=== PATIENT | female | born 1960 | race Two or more races ===

== ENCOUNTER 2023-07-07 11:24 | Outpatient (AMB) | payer OTHER, SELFPAY ==
--- NOTE | 2023-07-07 11:27 | HO.NEPHOV ---
HPI HPI Comments History of Present Illness Details 63-year-old woman with a history of longstanding diabetes mellitus is here for follow-up regarding CKD. Recent serum creatinine has been around 1.4 mg/dL. Overall she is doing well without any new complaints. She has been monitoring of blood pressure at home which has been well controlled with systolic blood pressure less than 120 mm of mercury. She is accompanied by motor vehicle parts interpreter. [facility] Social History Alcohol intake: never Patient Tobacco Use Status: Never used Tobacco Vital Signs 07/07/23 11:31 07/07/23 11:55 Height 5 ft 2 in Weight 142 lb BMI 26.0 BP 160/72 H 140/70 H Blood Pressure Location Lt brachial Lt brachial Position Sitting Sitting Pulse 92 Pulse Source Pulse Oximeter Pulse Oximetry (%) 100 Oxygen Delivery Method Room Air Physical Exam Vital Signs: Last Vital Signs Pulse 92 07/07/23 11:31 BP 140/70 H 07/07/23 11:55 Pulse Ox 100 07/07/23 11:31 Oxygen Delivery Method Room Air 07/07/23 11:31 BMI result Body Mass Index 26.0 Const General: comfortable Nutritional Appearance: well nourished Orientation/consciousness: patient oriented x3 HEENT Head: No normal to inspection Mouth: moist mucous membranes Neck Neck: Yes supple and Yes no JVD Resp Auscultation: clear to auscultation bilaterally, no rales and rub present Cardio Jugular venous distension: no JVD Palpation: no palpable S3 and no palpable S4 Heart sounds: no rubs GI Palpation (GI): Soft to palpation and nontender Percussion: No Fluid wave present General: Yes no CVA tenderness Back/Spine/Pelvis Back: no CVA tenderness Skin General skin exam: no rashes or lesions noted Neuro General: patient oriented x3 Extrem General: Yes no pedal edema and No clubbing Assessment & Plan Assessment & Plan (1) CKD (chronic kidney disease) stage 3, GFR 30-59 ml/min: Code(s): N18.30 - Chronic kidney disease, stage 3 unspecified Plan: . Plan 63-year-old woman with stage IIIA CKD in the setting of longstanding diabetes mellitus. Renal function has been stable at baseline. I will recheck BUN creatinine today. Continue overt nephrotoxic agents. Maintain blood pressure less than 130/80 and A1c less than 7%. Continue with SGLT 2 inhibitors for cardiorenal protection As for the blood pressure her initial reading was elevated at 160/80. 15 minutes later repeat blood pressure 140/70 mmHg and she clearly has white coat effect. Home blood pressure readings are excellent. I have encouraged her to continue monitoring her blood pressure at home. Stay on low-sodium diet. No changes were made to her medications today. Orders: Orders Electrolytes Today N18.30 - Chronic kidney disease, stage 3 unspecified Creatinine Today N18.30 - Chronic kidney disease, stage 3 unspecified Calcium Today N18.30 - Chronic kidney disease, stage 3 unspecified Blood Urea Nitrogen Today N18.30 - Chronic kidney disease, stage 3 unspecified Coding Level of Care Code Est Pt Level 3 (98421) Diagnoses CKD (chronic kidney disease) stage 3, GFR 30-59 ml/min N18.30 Results Reviewed Results Reviewed: Creatinine 1.3 as of November 2022 Nephrology Results: No Data to Display
[2023-07-07 11:31] VITALS: BP 160/72; PULSE 92; O2SAT 100; BMI 26.0
[2023-07-07 11:55] VITALS: BP 140/70
== END 2023-07-07 11:55 | disposition home or self-care (01) ==
LOC: HO.HKAS 11:25
PROVIDERS: PCP Pediatrics; Visit Provider Internal Medicine Hypertension Specialist
DX: N18.30 Chronic kidney disease, stage 3 unspecified (principal)
CPT/HCPCS: 99213

== ENCOUNTER 2023-07-07 11:24 | Outpatient (REF) | payer OTHER, SELFPAY ==
[2023-07-08 09:25] LABS: Anion Gap 11 (12-20); Blood Urea Nitrogen 30 mg/dL (9-16); Calcium 9.6 mg/dL (8.4-10.2); Carbon Dioxide 26 mmol/L (22-29); Chloride 102 mmol/L (96-108); Estimated Glomerular Filt Rate 41; Potassium 4.4 mmol/L (3.3-5.1); Sodium 135 mmol/L (135-145)
== END 2023-07-07 11:25 | disposition home or self-care (01) ==
LOC: HO.HKASLDS 11:24
PROVIDERS: PCP Pediatrics; Visit Provider Internal Medicine Hypertension Specialist
DX: N18.30 Chronic kidney disease, stage 3 unspecified (principal)
CPT/HCPCS: 36415; 80051; 82310; 82565; 84520; 99212

== ENCOUNTER 2024-01-05 10:16 | Outpatient (AMB) | payer OTHER, SELFPAY ==
--- NOTE | 2024-01-05 10:43 | HO.NEPHOV_ITS ---
Vital Signs 01/05/24 10:44 01/05/24 10:56 Height 5 ft 2 in Weight 138 lb BMI 25.2 BP 150/64 H 138/60 Blood Pressure Location Lt brachial Lt brachial Position Sitting Sitting Pulse 88 Pulse Source Pulse Oximeter Pulse Oximetry (%) 100 Oxygen Delivery Method Room Air Intake Visit Reasons: 6 mon follow up/ Conf Facilities Engineer Required: Yes Facilities Engineer Name: Yamilex [id number] Accompanied by: Self / Same As Patient Allergies hydroxyzine [From Vistaril] Allergy (Mild, Verified 01/05/24 10:45) Depression Medication List - Last Reconciled 01/05/24 by Deangelo Nelson MD amlodipine 2.5 mg PO DAILY atorvastatin 40 mg PO BEDTIME empagliflozin (Jardiance) 25 mg PO DAILY glipizide 5 mg PO BID HPI Comments Details: 63-year-old woman with a history of longstanding diabetes mellitus is here for follow-up regarding CKD. Recent serum creatinine has been around 1.4 mg/dL. Overall she is doing well without any new complaints. She has been monitoring of blood pressure at home which has been well controlled with systolic blood pressure less than 120 mm of mercury. She is accompanied by asl interpreter. [facility] Social History Alcohol intake: never Patient Tobacco Use Status: Never used Tobacco Physical Exam Vital Signs: Last Vital Signs Pulse 88 01/05/24 10:44 BP 150/64 H 01/05/24 10:44 Pulse Ox 100 01/05/24 10:44 Oxygen Delivery Method Room Air 01/05/24 10:44 BMI result Body Mass Index 25.2 Const General: comfortable; No acute distress Orientation/consciousness: patient oriented x3 Eyes General: appearance normal, both eyes and all related structures Visual Mathews: normal visual mathews by confrontation Neck Neck: Yes supple and Yes no JVD Resp Effort & Inspection: normal respiratory effort and respiratory effort not decreased Auscultation: rhonchi Cardio Palpation: no palpable S3 and no palpable S4 Heart sounds: no rubs GI Inspection: Yes normal to inspection Palpation (GI): Soft to palpation Percussion: Yes normal to percussion Auscultation: normal bowel sounds General: Yes no CVA tenderness Back/Spine/Pelvis Back: no CVA tenderness Skin General skin exam: no petechiae and no purpura Neuro General: patient oriented x3 and no focal motor deficits Extrem General: No clubbing and No edema Results Reviewed Nephrology Results: Sodium 135 mmol/L (135-145) 07/07/23 Potassium 4.4 mmol/L (3.3-5.1) 07/07/23 Chloride 102 mmol/L (96-108) 07/07/23 Carbon Dioxide 26 mmol/L (22-29) 07/07/23 BUN 30 mg/dL (9-16) H 07/07/23 Creatinine 1.30 mg/dL (0.5-1.4) 07/07/23 Calcium 9.6 mg/dL (8.4-10.2) 07/07/23 Assessment & Plan Assessment & Plan (1) CKD (chronic kidney disease) stage 3, GFR 30-59 ml/min: Code(s): N18.30 - Chronic kidney disease, stage 3 unspecified Category: Medical Plan: . Plan 63-year-old woman with stage IIIA CKD in the setting of longstanding diabetes mellitus. Renal function has been stable at baseline. I will recheck BUN creatinine today. Continue overt nephrotoxic agents. Maintain blood pressure less than 130/80 and A1c less than 7%. Continue with SGLT 2 inhibitors for cardiorenal protection As for the blood pressure her initial reading was elevated at 154/80. 15 minutes later repeat blood pressure 140/60 mmHg and she clearly has white coat effect. Home blood pressure readings are excellent. I have encouraged her to continue monitoring her blood pressure at home. Stay on low-sodium diet. No changes were made to her medications today. Orders: Orders Complete Blood Count no Diff Today N18.30 - Chronic kidney disease, stage 3 unspecified Comprehensive Met. Panel Today N18.30 - Chronic kidney disease, stage 3 unspecified Coding Level of Care Code Est Pt Level 4 (80887) Diagnoses CKD (chronic kidney disease) stage 3, GFR 30-59 ml/min N18.30
[2024-01-05 10:44] VITALS: BP 150/64; PULSE 88; O2SAT 100; BMI 25.2
[2024-01-05 10:56] VITALS: BP 138/60
== END 2024-01-05 11:05 | disposition home or self-care (01) ==
PROVIDERS: PCP Pediatrics; Visit Provider Internal Medicine Hypertension Specialist
DX: N18.30 Chronic kidney disease, stage 3 unspecified (principal)
CPT/HCPCS: 99214

== ENCOUNTER → 2024-01-05 10:16 | Outpatient (BNVA) | payer OTHER, SELFPAY | PROVIDERS: PCP Pediatrics; Visit Provider Internal Medicine Hypertension Specialist | DX: N18.30 Chronic kidney disease, stage 3 unspecified (principal) | CPT/HCPCS: 99212 ==

== ENCOUNTER 2024-06-21 09:14 | Outpatient (AMB) | payer OTHER, SELFPAY ==
[2024-06-21 10:47] VITALS: BP 164/66; PULSE 84; O2SAT 100; BMI 26.0
--- NOTE | 2024-06-21 10:47 | HO.NEPHOV ---
Vital Signs 06/21/24 10:47 Height 5 ft 2 in Weight 142 lb BMI 26.0 BP 164/66 H Blood Pressure Location Lt brachial Position Sitting Pulse 84 Pulse Source Pulse Oximeter Pulse Oximetry (%) 100 Oxygen Delivery Method Room Air Intake Visit Reasons: 6 mon follow up/ Conf Healthcare Administration Internship Required: Yes Healthcare Administration Internship Name: Alfredo [id number] Accompanied by: Self / Same As Patient Allergies hydroxyzine [From Vistaril] Allergy (Mild, Verified 06/21/24 10:53) Depression Medication List - Last Reconciled 06/21/24 by Deangelo Nelson MD amlodipine 2.5 mg PO DAILY atorvastatin 40 mg PO BEDTIME empagliflozin (Jardiance) 25 mg PO DAILY glipizide 5 mg PO BID HPI Comments Details: 63-year-old woman with a history of longstanding diabetes mellitus is here for follow-up regarding CKD. Recent serum creatinine has been around 1.4 mg/dL. Overall she is doing well without any new complaints. She has been monitoring of blood pressure at home which has been well controlled with systolic blood pressure less than 120 mm of mercury. She is accompanied by machine farmworker. [facility] Social History Alcohol intake: never Patient Tobacco Use Status: Never used Tobacco Physical Exam Vital Signs: Last Vital Signs Pulse 84 06/21/24 10:47 BP 164/66 H 06/21/24 10:47 Pulse Ox 100 06/21/24 10:47 Oxygen Delivery Method Room Air 06/21/24 10:47 BMI result Body Mass Index 26.0 Results Reviewed Results Reviewed: . Apr 2024: Cr 1.26 Nephrology Results: Sodium 135 mmol/L (135-145) 07/07/23 Potassium 4.4 mmol/L (3.3-5.1) 07/07/23 Chloride 102 mmol/L (96-108) 07/07/23 Carbon Dioxide 26 mmol/L (22-29) 07/07/23 BUN 30 mg/dL (9-16) H 07/07/23 Creatinine 1.30 mg/dL (0.5-1.4) 07/07/23 Calcium 9.6 mg/dL (8.4-10.2) 07/07/23 Assessment & Plan Assessment & Plan (1) CKD (chronic kidney disease) stage 3, GFR 30-59 ml/min: Code(s): N18.30 - Chronic kidney disease, stage 3 unspecified Category: Medical Plan: . Plan 63-year-old woman with stage IIIA CKD in the setting of longstanding diabetes mellitus. Renal function has been stable at baseline. Continue to avoid nephrotoxic agents. Maintain blood pressure less than 130/80 and A1c less than 7%. Continue with SGLT 2 inhibitors for cardiorenal protection She has superimposed white coat effect. Home blood pressure readings are excellent. I have encouraged her to continue monitoring her blood pressure at home. Stay on low-sodium diet. No changes were made to her medications today. Orders: Orders UA and rflx microscopic 6 Months N18.30 - Chronic kidney disease, stage 3 unspecified Basic Metabolic Panel 6 Months N18.30 - Chronic kidney disease, stage 3 unspecified Coding Level of Care Code Est Pt Level 4 (10872) Diagnoses CKD (chronic kidney disease) stage 3, GFR 30-59 ml/min N18.30
== END 2024-06-21 11:11 | disposition home or self-care (01) ==
PROVIDERS: PCP Pediatrics; Visit Provider Internal Medicine Hypertension Specialist
DX: N18.30 Chronic kidney disease, stage 3 unspecified (principal)
CPT/HCPCS: 99214

== ENCOUNTER → 2024-06-21 09:14 | Outpatient (BNVA) | payer OTHER, SELFPAY | PROVIDERS: PCP Pediatrics; Visit Provider Internal Medicine Hypertension Specialist | DX: N18.30 Chronic kidney disease, stage 3 unspecified (principal) | CPT/HCPCS: 99212 ==

== ENCOUNTER 2025-01-17 10:25 | Outpatient (AMB) | payer OTHER, SELFPAY ==
--- NOTE | 2025-01-17 10:55 | HO.NEPHOV ---
Vital Signs 01/17/25 10:56 Height 5 ft 2 in Weight 130 lb BMI 23.8 BP 164/70 H Blood Pressure Location Lt brachial Position Sitting Pulse 88 Pulse Source Pulse Oximeter Pulse Oximetry (%) 99 Oxygen Delivery Method Room Air Intake Visit Reasons: 12/27/24 LM Derrick Helper Required: Yes Derrick Helper Name: [id number] Accompanied by: Self / Same As Patient Allergies hydroxyzine (From Vistaril) Allergy (Mild, Verified 01/17/25 10:57) Depression Medication List - Last Reconciled 01/17/25 by Deangelo Nelson MD amlodipine 2.5 mg PO DAILY atorvastatin 40 mg PO BEDTIME empagliflozin (Jardiance) 25 mg PO DAILY glipizide 5 mg PO BID HPI Comments Details: 64-year-old woman with a history of longstanding diabetes mellitus is here for follow-up regarding CKD. Recent serum creatinine has been around 1.4 mg/dL. Overall she is doing well without any new complaints. She has been monitoring of blood pressure at home which has been well controlled with systolic blood pressure less than 120 mm of mercury. Used pipe changer service 01/17/25 The patient is a 64-year-old female presenting with concerns about hypertension management and renal function monitoring. The patient reports experiencing elevated blood pressure readings during office visits, which normalize at home, suggesting a white coat effect. She adheres to her antihypertensive medication regimen but notes increased anxiety during medical appointments, potentially contributing to elevated readings. Renal function remains stable as per recent blood tests, with no significant changes noted. The patient is advised to maintain adequate hydration, especially in hot weather, while being cautious of hypoglycemia, as excessive water intake can lower her blood sugar levels. [facility] Social History Alcohol intake: never Patient Tobacco Use Status: Never used Tobacco Physical Exam Vital Signs: Last Vital Signs Pulse 88 01/17/25 10:56 BP 164/70 H 01/17/25 10:56 Pulse Ox 99 01/17/25 10:56 Oxygen Delivery Method Room Air 01/17/25 10:56 BMI result Body Mass Index 23.8 Const General: comfortable; No acute distress Orientation/consciousness: patient oriented x3 Eyes General: appearance normal, both eyes and all related structures Visual Mathews: normal visual mathews by confrontation Neck Neck: Yes supple and Yes no JVD Resp Effort & Inspection: normal respiratory effort and respiratory effort not decreased Auscultation: rhonchi Cardio Palpation: no palpable S3 and no palpable S4 Heart sounds: no rubs GI Inspection: Yes normal to inspection Palpation (GI): Soft to palpation Percussion: Yes normal to percussion Auscultation: normal bowel sounds General: Yes no CVA tenderness Back/Spine/Pelvis Back: no CVA tenderness Skin General skin exam: no petechiae and no purpura Neuro General: patient oriented x3 and no focal motor deficits Extrem General: No clubbing and No edema Results Reviewed Results Reviewed: . Apr 2024: Cr 1.26 12/2024: BUN/ Cr Nephrology Results: Sodium, (135-145) 135 mmol/L 07/07/23 Potassium, (3.3-5.1) 4.4 mmol/L 07/07/23 Chloride, (96-108) 102 mmol/L 07/07/23 Carbon Dioxide, (22-29) 26 mmol/L 07/07/23 BUN, (9-16) 30 mg/dL H 07/07/23 Creatinine, (0.5-1.4) 1.30 mg/dL 07/07/23 Calcium, (8.4-10.2) 9.6 mg/dL 07/07/23 Assessment & Plan Assessment & Plan (1) CKD (chronic kidney disease) stage 3, GFR 30-59 ml/min: Code(s): N18.30 - Chronic kidney disease, stage 3 unspecified Category: Medical Plan: . Plan 64-year-old woman with stage IIIA CKD in the setting of longstanding diabetes mellitus. Renal function has been stable at baseline. Cr 1.3 in 2022 and 1.29 in 2024 Continue to avoid nephrotoxic agents. Maintain blood pressure less than 130/80 and A1c less than 7%. Continue with SGLT 2 inhibitors for cardiorenal protection She has superimposed white coat effect. Home blood pressure readings are excellent. I have encouraged her to continue monitoring her blood pressure at home. Stay on low-sodium diet. No changes were made to her medications today. Orders: Orders Total Protein Urine Random 6 Months N18.30 - Chronic kidney disease, stage 3 unspecified Creatinine Urine 6 Months N18.30 - Chronic kidney disease, stage 3 unspecified Basic Metabolic Panel 6 Months N18.30 - Chronic kidney disease, stage 3 unspecified Complete Blood Count no Diff 6 Months N18.30 - Chronic kidney disease, stage 3 unspecified UA and rflx microscopic 6 Months N18.30 - Chronic kidney disease, stage 3 unspecified Coding Level of Care Code Est Pt Level 4 (03665) Diagnoses CKD (chronic kidney disease) stage 3, GFR 30-59 ml/min N18.30
[2025-01-17 10:56] VITALS: BP 164/70; PULSE 88; O2SAT 99; BMI 23.8
--- OUTSIDE RECORDS SUMMARY | 2025-01-17 12:10 | XMS_ITS | Data Portability ---
Author Organization [facility], [facility] Address [address] [place] [address] Care Team Providers Care Antique Clocks Repairer Name Role Phone HIM CCA OTHER Assessment No assessment recorded. Plan of Treatment Reminders Order Date Submit Date Provider Last Modified By Organization Details Last Modified Time Details Appointments None recorded. Lab None recorded. Referral None recorded. Procedures None recorded. Surgeries None recorded. Imaging None recorded. Medication Orders Tylenol Extra Strength 500 mg tablet 2023 024 [email or web address] Not available 10:14:26 Patient TargetsNo targets recorded. Patient InstructionsNo instructions recorded. Reason for Referral None Reported. Medical Equipment None Reported. Medications Name Sig Start Date Stop Date Status Note LastModified by Organization Details LastModified Time atorvastatin 40 mg tablet TOME GA TABLETA POR V A ORAL A DIARIO active Not Available Not Available No t Available FreeStyle Lancets 28 gauge USE DIRECTED FOR TYPE 2 DIABETES MELLITUS CHECK BLOOD SUGAR TODOS LOS D active Not Available Not Available No t Available amlodipine 2.5 mg tablet TOME GA TABLETA TODOS LOS D active Not Available Not Available No t Available glipizide 5 mg tablet TOME GA TABLETA DOS VECES AL D A active Not Available Not Available No t Available Tylenol Extra Strength 500 mg tablet Take 2 tablets as needed by oral route. 2023 active Not Available Not Available Not Avai lable Jardiance 25 mg tablet TOME GA TABLETA POR V A ORAL CADA MA ADRIANNE active Not Available Not Available No t Available Vitals Date Recorded Body weight Body temperature Respiratory rate Heart rate Oxygen saturation Oxygen saturation in Arterial blood by Pulse oximetry Body height Systolic blood pressure Diastolic blood pressure Provider Name and Address Organization Details Last Updated DateTime 4 94672.5 12 g 97.8 [degF] 16 /min 78 /min 100 % 100 % 157.48 cm 155 mm[Hg] 65 mm[Hg] Not Available [facility] - production 10:11:55 Social History None recorded. Functional Status None recorded. Mental Status None recorded. Family History Nothing Reported. Medical History No medical history recorded. Gynecological HistoryNo gynecological history recorded. Obstetrics History GPAL:G 0 P 0 0 0 0 Past Encounters Encounter ID Performer Location Encounter Start Date Encounter Closed Date Diagnosis/Indication Diagnosis SNOMED-CT Code Diagnosis ICD10 Code Diagnosis Note [id number] Regine Pickens MD [facility] - [facility] [address] [place] [phone] 03/21/2024 10:11:48 03/21/2024 14:05:01 Pain of left hand [id number] M79.642 63 year old female being evaluated for two weeks of left index and middle finger pain. Patient denies trauma or fever, and is able to use the hand although painful. Patient does not take medication s for pain, and has no tylenol at home. Exam notable for normal vital signs, hands with mild swan-neck deformity, without erythema or edema noted. Patient is able to open and close her hands normally. Presentati on consistent with osteoarthr itis of the hands with acute pain flare of the left hand. Recommend Tylenol and FU outpatient team for prison pain management plan. I have reviewed and agree with the assessment and plan as documented by the call person. I provided real-time medical direction for this encounter and was immediatel y available to provide additional phone-base d assistance as needed. We discussed the diagnostic uncertaint y of home visits and associated risks. We discussed the need to seek care urgently/e mergently in the setting of any new or worsening symptoms. Health Concerns Section Related Observation LastModified by Organization Detai ls LastModified Time None Recorded Concern Status LastModified by Organization Details LastModified Time None Recorded Advance Directives Directive None Recorded Payers Insurance Date Sequence Insurance Name Policy Number Policy Broderick Covered Member ID Broderick Member ID Guarantor Name 03/20/2024 1 [facility] - DOS ON OR AFTER 2022 - DUAL ELIGIBLE - [facility] OPTIONS AND ONE CARE (MEDICARE REPLACEMENT/ADV ANTAGE - HMO) Florence Montero [id number] Florence Montero Notes Date Note Type Note Provider Name and Address Organization Details Recorded Time 03/21/2024 text/html [facility] Nurse Triage Notes (Praful Sharpe): Reason For Request: Patient has hand pain, and she can not close her hands. Chief Complaints: Edema, Pain Allergies: Unknown Comments: Yoghurt Maker verified the member's name//address and phone number. Mbr's daughter calling reporting mbr with swollen, painful hands for the last two months. Education provided on the response time and the member was advised to monitor reported s/s and seek emergency treatment if needed -Lashanda Sharpe RN---- member called and will not be home the rest of the evening, requesting a visit tomorrow 03/21- ................... ................... ................... ................... ................... ................... ................... ........ Log Sorter Note From Jose Blackwood: Pt reporting two weeks of swelling and pain in her left index and middle finger. Pt has hx of OA but not in her hands. Pt has not taken anything for pain relief as she is unsure what to take. The soonest PCP appt she could get was in April. Pt is alert, NAD. VSS. Afebrile. Left index and middle finger have mild edema, full ROM, normal cap refill, no erythema or warmth. Pt treated with acetaminophen 1 g PO and educated on appropriate acetaminophen dosing. ................... ................... ................... ................... ................... ................... ................... ........ Disposition: Fulfilled [facility] Nurse Triage Notes (Praful Sharpe): Reason For Request: Patient has hand pain, and she can not close her hands. Chief Complaints: Edema, Pain Allergies: Unknown Comments: Yoghurt Maker verified the member's name//address and phone number. Mbr's daughter calling reporting mbr with swollen, painful hands for the last two months. Education provided on the response time and the member was advised to monitor reported s/s and seek emergency treatment if needed -Lashanda Sahrpe RN---- member called and will not be home the rest of the evening, requesting a visit tomorrow 03/21- DEVAN Pickens MD [address] [place] [address],[address], [place], [phone], [employer] 03/21/2024 10:40:01 OBGyn Episode No OBEpisode recorded.
== END 2025-01-17 11:14 | disposition home or self-care (01) ==
LOC: HO.HKAS 10:25
PROVIDERS: PCP Pediatrics; Visit Provider Internal Medicine Hypertension Specialist
DX: N18.30 Chronic kidney disease, stage 3 unspecified (principal)
CPT/HCPCS: 99214

== ENCOUNTER → 2025-01-17 10:25 | Outpatient (BNVA) | payer OTHER, SELFPAY | PROVIDERS: PCP Pediatrics; Visit Provider Internal Medicine Hypertension Specialist | DX: N18.31 Chronic kidney disease, stage 3a (principal); E11.9 Type 2 diabetes mellitus without complications | CPT/HCPCS: 99212 ==